=== PATIENT | female | born 1995 | race African-American/Black ===

== ENCOUNTER 2018-08-08 08:46 | Emergency (ER) | payer OTHER ==
[~2018-08-08] VITALS: Ht 167.6 cm; Wt 99.8 kg
[2018-08-08 09:00] VITALS: BP 122/82
[2018-08-08] MEDS ORDERED: VENTOLIN HFA 1818 GM INH ×2 (09:07→09:20)
== END 2018-08-08 09:28 | disposition home or self-care (01) ==
LOC: ER 08:46
DX: O99.511 Diseases of the respiratory system complicating pregnancy, first trimester (principal); J45.909 Unspecified asthma, uncomplicated; Z3A.00 Weeks of gestation of pregnancy not specified

== ENCOUNTER 2019-07-10 08:44 | Emergency (ER) | payer OTHER ==
[~2019-07-10] VITALS: Ht 175.3 cm; Wt 86.6 kg
[~2019-07-10 08:44] MED LIST: VENTOLIN HFA 1818 GM INH
[2019-07-10 09:30] VITALS: BP 121/78
[2019-07-10] MEDS ORDERED: NAPROSYN500 MG PO (10:10)
== END 2019-07-10 10:10 | disposition home or self-care (01) ==
LOC: ER 08:44
DX: S93.401A Sprain of unspecified ligament of right ankle, initial encounter (principal); J45.909 Unspecified asthma, uncomplicated; W10.8XXA Fall (on) (from) other stairs and steps, initial encounter; Y93.89 Activity, other specified; Y92.89 Other specified places as the place of occurrence of the external cause; Y99.8 Other external cause status